=== PATIENT | female | born 1990 | race Caucasian/White ===

== ENCOUNTER 2017-07-18 01:14 | Inpatient (IN) | payer BC ==
[~2017-07-18] VITALS: Ht 175.3 cm; Wt 104.5 kg
[2017-07-18] MEDS ORDERED: BUPIVACAINE 0.25% 30 ML VIAL ONE (01:51)
[2017-07-18] MEDS ORDERED: EpHEDrine SULFATE INJ 50 MG/ML AMP ONE (01:51)
[2017-07-18] MEDS ORDERED: FENTANYL CITRATE INJ 50 MCG/1 ML 2 ML VIAL ONE (01:52)
[2017-07-18] MEDS ORDERED: FENTANYL 2MCG/ML ROPIV 1.25MG/ML 100ML BAG EPI ONE (01:52)
[2017-07-18 02:02] VITALS: Ht 175.3 cm; Wt 104.5 kg
[2017-07-18 02:05] LABS: HEMATOCRIT 32.3 % (37-47); MEAN CELL VOLUME 86.6 fL (80-100); MEAN CORPUSCULAR HEMOGLOBIN 28.4 pg (25-34); MEAN PLATELET VOLUME 9.9 fL (7.4-10.4); PLATELET COUNT 205 K/uL (130-400); RED BLOOD COUNT 3.73 M/uL (4.2-5.4); WHITE BLOOD COUNT 9.84 K/uL (4.8-10.8)
[2017-07-18] MEDS ORDERED: PRENTAB26 PO (02:05)
--- NOTE | 2017-07-18 02:17 | Progress Note ---
Progress Note Date of Service Jul 18, 2017. Progress Note Admit Note 27 F P1011 at 39.4 weeks admitted in labor. Cervix 4/70/-2/vertex. FHT Cat 1. GBS is negative. Will fluid load for epidural and plan for normal delivery.
[2017-07-18] MEDS ORDERED: NALOXONE HCL INJ 1 MG in SODIUM CHLORIDE 0.9% 1000ML 1,000 ML IV PRN ×4 (02:52)
[2017-07-18] MEDS ORDERED: LACTATED RINGER'S 1000ML 500 ML IV PRN (02:52)
[2017-07-18 02:54] LABS: MEAN CORPUSCULAR HGB CONC 32.8 g/dl (32-36)
[2017-07-18] MEDS ORDERED: EFF75 PO (02:59)
[2017-07-18] MEDS ORDERED: DiphenhydrAMINE HCL 50 MG/ML VIAL IV PRN (03:00)
[2017-07-18] MEDS ORDERED: NALBUPHINE HCL INJ 10 MG/ML AMP IV PRN (03:00)
[2017-07-18] MEDS ORDERED: NALOXONE HCL INJ 0.4 MG/1 ML VIAL/CARP IV PRN (03:00)
[2017-07-18] MEDS ORDERED: METOCLOPRAMIDE HCL INJ 20 MG in SODIUM CHLORIDE 0.9% 50ML 50 ML IV PRN (03:00)
[2017-07-18] MEDS ORDERED: FENTANYL 2MCG/ML ROPIV 1.25MG/ML 100ML BAG EPI PRN (03:00)
[2017-07-18] MEDS ORDERED: EpHEDrine SULFATE INJ 50 MG/ML AMP IV PRN (03:00)
[2017-07-18] MEDS ORDERED: PROMETHAZINE HCL INJ 25 MG in SODIUM CHLORIDE 0.9% 50ML 50 ML IV PRN (03:00)
[2017-07-18] MEDS ORDERED: ONDANSETRON INJ 2 MG/ML 2 ML VIAL IV PRN (03:00)
[2017-07-18] MEDS ORDERED: OXYTOCIN 30 UNITS/500ML NSS IV ONE (05:09)
[2017-07-18] MEDS ORDERED: LANOLIN OINT EXT PRN ×2 (05:30)
[2017-07-18] MEDS ORDERED: LACTATED RINGER'S 1000ML 1,000 ML IV SCH (05:30)
[2017-07-18] MEDS ORDERED: SUPERCREAM 0.870 % 15GM JAR EXT PRN (05:30)
[2017-07-18] MEDS ORDERED: BENZOCAINE 20% AER SPR 82.5 GM CAN EXT PRN (05:30)
[2017-07-18] MEDS ORDERED: ACETAMINOPHEN 325 MG TAB PO PRN (05:30)
[2017-07-18] MEDS ORDERED: OXYTOCIN 30 UNITS/500ML NSS IV PRN (05:30)
[2017-07-18] MEDS ORDERED: HYDROCORTISONE ACETATE 25 MG SUPP PR PRN (05:30)
--- NOTE | 2017-07-18 05:40 | Vaginal Delivery Summary ---
Vaginal Delivery Summary Delivery Note live male over intact perineum STACEY with Apgars 9/9. Delayed cord clamping follows by cord blood and spontaneous delivery of intact placenta. No tears. EBL 200 ml. Final sponge and instrument count are correct . Mom and baby stable.
--- NOTE | 2017-07-18 07:12 | Anesthesia Procedure Note ---
Anesthesia Epidural Removal Nt Date & Time Jul 18, 2017 at 07:12 Vital Signs Pain Intensity: 2.0 Notes Mental Status: alert / awake / arousable, participated in evaluation Nausea / Vomiting: adequately controlled Pain: adequately controlled Airway Patency, RR, SpO2: stable & adequate BP & HR: stable & adequate Hydration State: stable & adequate Neuraxial Anesthesia: was administered, sensory block is resolving Anesthetic Complications: no major complications apparent, pt satisfied with anesthetic care Epidural: removed without complications, with tip intact
[2017-07-18] MEDS: IBUPROFEN 600 MG TAB PO PRN ×3 (09:16→18:19)
[2017-07-18] MEDS: DOCUSATE SODIUM 100 MG CAP PO SCH ×2 (09:23→19:52)
[2017-07-18] MEDS: FERROUS SULFATE 325 MG TAB PO SCH (09:23)
[2017-07-18] MEDS: PRENATAL VITAMIN TAB PO SCH (09:24)
[2017-07-18 09:30] VITALS: BP 130/69; PULSE 115; TEMP 36.8; O2SAT 97
[2017-07-18 13:10] VITALS: BP 145/94; PULSE 82; TEMP 36.4; O2SAT 97
[2017-07-18] MEDS ORDERED: VENLAFAXINE HCL 37.5 MG TAB PO ONE (13:20)
[2017-07-18 16:20] VITALS: BP 131/87; PULSE 104; TEMP 36.4; O2SAT 94; O2SAT 97
[2017-07-18 19:50] VITALS: BP 149/89; PULSE 105; TEMP 37
[2017-07-18] MEDS: OXYCODONE/ACETAMINOPHEN 5-325 TAB PO PRN (19:54)
[2017-07-18] MEDS ORDERED: VENLAFAXINE HCL 37.5 MG TAB PO SCH (20:00)
[2017-07-18] MEDS ORDERED: NURSING VERBAL MED ORDER ONE (20:30)
[2017-07-19] VITALS: BP 125/81; PULSE 82; TEMP 37
[2017-07-19] MEDS: IBUPROFEN 600 MG TAB PO PRN ×4 (01:11→17:50)
[2017-07-19] MEDS: OXYCODONE/ACETAMINOPHEN 5-325 TAB PO PRN ×2 (01:11→13:01)
[2017-07-19 04:30] VITALS: BP 143/89; PULSE 86; TEMP 36.9
[2017-07-19 07:04] LABS: HEMATOCRIT 29.5 % (37-47)
[2017-07-19] MEDS: PRENATAL VITAMIN TAB PO SCH (07:09)
[2017-07-19] MEDS: DOCUSATE SODIUM 100 MG CAP PO SCH ×2 (07:09→20:00)
[2017-07-19] MEDS: FERROUS SULFATE 325 MG TAB PO SCH (07:09)
[2017-07-19 07:54] VITALS: BP 138/92; PULSE 69; TEMP 36.4
[2017-07-19 07:56] VITALS: O2SAT 97
[2017-07-19] MEDS ORDERED: VENLAFAXINE HCL 37.5 MG TAB PO SCH (08:00)
--- NOTE | 2017-07-19 08:36 | OB/GYN Progress Note ---
LIFE ADVISOR Progress Note Date of Service: Jul 19, 2017. Patient is seen and examined. She feels well, no complaints. Ambulating without dizziness Voiding without difficulty Tolerating regular diet with out N&V Bleeding is minimal No fever/ chills/ CP/ SOB/ N&V/ Leg pain Bottle feeding without problems Date Time Temp Pulse Resp B/P (MAP) Pulse Ox O2 Delivery O2 Flow Rate FiO2 07/19/17 07:54 36.4 69 18 138/92 (107) Room Air 07/19/17 04:30 36.9 86 18 143/89 (107) 07/19/17 00:00 Room Air 07/19/17 00:00 37.0 82 16 125/81 (96) 07/18/17 19:50 37.0 105 18 149/89 (109) 07/18/17 16:20 97 Room Air 07/18/17 16:20 36.4 104 18 131/87 (102) 94 Room Air 07/18/17 13:10 36.4 82 18 145/94 (111) 97 Room Air 07/18/17 09:30 Room Air 07/18/17 09:30 36.8 115 18 130/69 (89) 97 Room Air 07/18/17 09:30 36.8 115 18 130/69 PE: General: Alert, orientedx3, NAD Abd: soft, NT, fundus firm, below Umbilicus Perineum intact, Lochia rubra minimal Ext; NT, no edema AP: 27 yo s/p , ppd# 1 VSS Afebrile doing well Continue routine care All questions were answered D/C home in am
[2017-07-19] MEDS ORDERED: DIPHTHERIA/TETANUS/PERTUSSIS 0.5 ML SYR/VIAL IM. ONE (09:00)
[2017-07-19] MEDS ORDERED: KETOROLAC TROMETHAMINE 30 MG/ML VIAL IV PRN (14:30)
--- NOTE | 2017-07-19 14:46 | Progress Note ---
Progress Note Date of Service Jul 19, 2017. Progress Note 27 yo female s/p vaginal delivery with epidural placement. Per patient, placement of her epidural was very painful at the insertion site, but it functioned well during the labor. Afterwards, by report it was very difficult to remove and required multiple position changes before coming out with the tip intact. The block resolved as expected after the catheter was removed and the patient has full strength and sensation in both lower extremities. Now the patient is complaining of severe back pain at the insertion site. The pain is localized to the insertion site only, is sharp in nature, and feels "like something is still in there." The pain is exacerbated by movement, but is present at rest. The site is C/D/I and notable for a single needle insertion site with a small hematoma. The patient has full strength in lower extremities , sensation is grossly intact, and patient has normal flexion in the spine, although reports increased pain with flexion. The back is tender at the insertion site and slightly right of the insertion site, but there is no tenderness along the spinalis muscles. The insertion site is notable for palpable soft tissue swelling. Suspected significant inflammation and possible hematoma around the insertion site. At this time I would recommend conservative management with anti- inflammatories and ice. Orders were placed for toradol PRN in place of ibuprofen and would recommend using toradol ATC if tolerated by the patient. Ice for comfort and encourage gentle ambulation and stretching. Order also placed for lidocaine patch for possible pain relief. Please contact us immediately for worsening back pain or the development of any neurological symptoms, especially weakness in lower extremities. Anesthesia will follow up again tomorrow to assess the patient. Viviana Avalos MD, PhD Anesthesiologist
[2017-07-19 15:50] VITALS: BP 132/92; PULSE 89; TEMP 37.3
[2017-07-19] MEDS ORDERED: MTR600X PO (17:01)
[2017-07-19] MEDS ORDERED: LDDP5 TD (17:01)
--- NOTE | 2017-07-19 17:02 | Discharge Instructions ---
Discharge Instructions Date of Service Jul 19, 2017. Admission Reason for Admission: LABOR Discharge Discharge Diagnosis / Problem: Discharge Goals Goal(s): Routine recovery after delivery Activity Recommendations Activity Limitations: as noted below ACTIVITY RECOMMENDATIONS: * Gradual return to full activity over the next 2-3 weeks. * No lifting - nothing heavier than baby over the next 2-3 weeks. * Do not engage in vigorous exercise, sexual activity or sports until cleared by your physician. * Do not drive or operate any motorized equipment until cleared by your physician. * You may shower/bathe daily. BREAST CARE: If you are not breast feeding: * Wear a supportive bra 24 hours a day for one to two weeks. * Avoid stimulating your breasts and nipples as much as possible during the first few weeks after delivery. * When taking a shower, have the warm water hit your back, not breasts. * When your breasts feel full, apply ice packs. Usually three to four times a day helps ease the discomfort. * Take a mild pain medication (Tylenol/Motrin) when you are uncomfortable. If breast feeding: * Use breast milk to lubricate nipples. Lansinoh cream may be used for sore nipples. You do not need to remove cream prior to breast feeding. If using a different brand of cream, check the label for directions regarding removal of cream prior to nursing. * Wear a supportive bra. * If having problems with breasts or breast feeding, call a performance management consultant or your health care provider. EPISIOTOMY CARE: After delivery, if you have an episiotomy (stitches), the following steps will ease discomfort and aid healing. * For the first 24 hours after delivery, place ice packs next to your episiotomy to help reduce swelling. * After the first 24 hour-period, sitz baths, either portable or in the tub, are suggested. A shower with a shower arm sprayed over the episiotomy may be comforting. * Lili care should be done after each voiding and bowel movement. Squirt warm water from a plastic bottle over the perineum (region of the body between the anus and urinary opening) and pat dry. * Use Dermoplast to ease discomfort. Shake container. [place] directly over the episiotomy. * Place a Tucks on a clean sanitary pad next to your episiotomy. OVER THE COUNTER MEDICATION: * For discomfort or pain, you may use Acetaminophen (Tylenol), Ibuprofen (Advil ), or Naproxen (Aleve) following the package directions. * For constipation you may use Colace following the package directions. SPECIAL CARE INSTRUCTIONS: When you are discharged from the hospital, it is important for you to follow the instructions listed below: * During the first week at home, you should be able to care for yourself and your baby. In addition, the usual light household activities are encouraged. * Limit your activities to the way you feel. Do not try to clean the house or move furniture. Be sensible. * If you actively engage in sports and have done so up until the time of your delivery, you may resume these activities as soon as you feel able. This may take up to one month or even longer. Use good judgment. * Continue to take your vitamins for at least six weeks after the of your baby. * Your diet need not be limited unless you were on a special diet before your delivery. Breast-feeding mothers need around 2500 calories per day and at least 64-80 ounces of fluid per day (8 to 10 glasses). * You should eat foods from the four major food groups. Crash diets or fad diets are to be avoided. Eating lean meats, fresh fruits and vegetables, low-fat dairy products, high fiber foods and a regular exercise program, will help you get back to your pre- weight without putting your health at risk. * Constipation is sometimes a problem after delivery. Take a mild laxative as needed. If breast feeding, Milk of Magnesia is acceptable to use. You may use a suppository or Fleets enema if no episiotomy. * A daily shower or tub bath is suggested. Be sure to thoroughly and gently dry the perineum. * A bloody vaginal discharge will usually continue until around four weeks post . A small amount of bleeding may continue for as long as six weeks. Vaginal discharge changes from the bright red bleeding after delivery to pink then brownish and finally yellowish-pink before becoming white and disappearing. * Bleeding may increase with activity. Your first period may come in 4-8 weeks. If you are breast feeding, your period may be delayed even longer. * [place] (sex) can begin whenever both you and your partner feel comfortable and do not have any form of genital infection. It is recommended that you wait until after your return appointment and discuss with your physician. If you have questions, please talk to your health care practitioner. A condom should be used to prevent infection and . * Foreplay, gentle intercourse and lubrication is very important the first several times to prevent pain. A water-based lubricant such as K-Y jelly or Astroglide may be used. * Tampons may be used six weeks after delivery. * Douching should be avoided for 6 weeks after delivery. * If you have RH negative blood and your baby is RH positive, you will receive RHOGAM by injection prior to discharge. The nurse will give you a card to keep with you that has the date and place that you received RHOGAM after delivery. * During your care, you had a Rubella screen done to check for the presence of rubella antibodies in your blood. If your test was negative, you will receive a Rubella vaccine prior to discharge. This vaccine may cause a fever, soreness at the injection site and flu-like symptoms. If these symptoms persist, notify your health care practitioner. is not advised for three months after a Rubella vaccine. There is a higher chance of having a baby with defects if conceived within three months of getting the vaccine. * If you were discharged 24 hours from delivery or before 48 hours: Visiting nurses will come to your home 48 hours after discharge to assess you and your baby. The visiting nurse will meet with you while you are in the hospital to arrange a time and get directions to your home. * Verbalizes understanding of car seat law as reviewed with patient nursing. * Car Seat hand-out given and reviewed with patient by nursing. * Shaken baby information reviewed with patient by nursing. Call you doctor if: * Heavy bleeding (saturating several pads an hour) or passing clots the size of your fist. * A fever >101 degrees F (38.3 degrees C) on two occasions four hours apart and/or chills. * Unusual pain in the pelvic or vaginal areas. * "Baby Blues" lasting longer than two weeks. If you have any questions or concerns, call your health care practitioner at . FOLLOW-UP VISIT: * Please call the office at to schedule a 6 week examination. It is important you keep this appointment. * It is important for you to make arrangements for either yearly or twice yearly check-ups thereafter. . Current Hospital Diet Patient's current hospital diet: Regular OB Diet Discharge Diet Recommended Diet: Regular Diet Pending Studies Studies pending at discharge: no Medical Emergencies . Who to Call and When: Medical Emergencies: If at any time you feel your situation is an emergency, please call 911 immediately. . Non-Emergent Contact Non-Emergency issues call your: Primary Care Provider, Hospital Doctor, Surgeon Call Non-Emergent contact if: temperature is above 100.5, your pain is not controlled, your pain is worsening, your pain is unusual for you, wound has increased drainage, wound has increased redness, wound has increased pain, you have any medication questions . . "Provider Documentation" section prepared by Devorah Ibrahim. . VTE Core Measure Inpt VTE Proph given/why not?: Treatment not indicated
--- NOTE | 2017-07-19 17:06 | OB/GYN Progress Note ---
HANDLING TECH Progress Note Date of Service: Jul 19, 2017. Patient desires to be discharged tonight Her back pain is getting better Has not received IV Toradol ordered by Anesthesiology yet Ice pack is helping She desires lidocaine patch before d/c I talked to Dr. Avalos, anesthesiologist , who is oka her to be discharged with ibuprofen, lidocaine patch. She gave her cell phone and their office number to call with any neurologic symptoms or worsening pain Patient likes to do that Will d/c home and f/u in office All questions were answered and instructions were given when to call Rx for Lidocaine patch and Ibuprofen
[2017-07-19] MEDS ORDERED: BISACODYL 5 MG TABEC PO SCH (20:00)
[2017-07-19 20:38] VITALS: BP_DIAS 92; PULSE 89; TEMP 37.3
[2017-07-20] MEDS ORDERED: BISACODYL 10 MG SUPP PR PRN (07:00)
[2017-07-20] MEDS ORDERED: LIDODERM (LIDOCAINE) PATCH 5% TD SCH (08:00)
== END 2017-07-19 20:35 | disposition home or self-care (01) | DRG 774 ==
LOC: C.LD 01:14 → C.OPB 01:14 → C.LD 01:31 → C.OPB 01:43 → C.OBG 09:08
PROVIDERS: ADMIT Obstetrics & Gynecology; ATTEND Obstetrics & Gynecology
PROC: 10E0XZZ Delivery of Products of Conception, External Approach (ICD-10-PCS; principal; 2017-07-18)
DX: O90.2 Hematoma of obstetric wound (principal); Z3A.39 39 weeks gestation of pregnancy; Z37.0 Single live birth; Y83.8 Other surgical procedures as the cause of abnormal reaction of the patient, or of later complication, without mention of misadventure at the time of the procedure

== ENCOUNTER 2023-05-25 18:16 | Observation (INO) ==
[2023-05-25 18:49] LABS: Hematocrit (blood only) 41.4 % (37.0-47.0); Hemoglobin 13.8 g/dl (12.0-16.0); Mean Corpuscular Hemoglobin 28.4 pg (25.0-34.0); Mean Corpuscular Hgb Conc 33.3 g/dL (32.0-36.0); Mean Corpuscular Volume 85.2 fL (80.0-100.0); Mean Platelet Volume 9.4 fL (9.4-12.4); Platelet Count 364 K/uL (130-400); RDW Coefficient of Variation 13.2 % (11.5-14.5); RDW Standard Deviation 40.3 fL (36.4-46.3); Red Blood Count 4.86 M/uL (4.20-5.40); White Blood Count 11.37 K/ul (4.8-10.8)
[2023-05-25 19:03] LABS: Albumin Globulin Ratio 1.3 (0.9-2); Albumin Level 4.4 gm/dl (3.4-5.0); BUN Creatinine Ratio 22.7 (10-20); Bilirubin,Total 0.3 mg/dl (0.2-1.0); Calcium 9.2 mg/dl (8.6-10.3); Creatinine Clr Calc Pharmacy 116.9 ml/min; Est GFR (African American) 99.4 ml/min; Est GFR (Non-African American) 85.7 ml/min; Globulin 3.4 gm/dl (2.5-4.0); Potassium 3.6 mmol/L (3.5-5.1); Total Protein 7.8 gm/dl (6.0-8.3)
[2023-05-25 19:08] LABS: Troponin I High Sensitivity 2.3 pg/ml (0-14)
[2023-05-25 19:10] LABS: Basophils # (auto) 0.02 K/uL (0-0.2); Basophils % (auto) 0.2 %; Immature Granulocytes # (auto) 0.05 K/uL (0.01-0.20); Immature Granulocytes % (auto) 0.4 %; Lymphocytes # (auto) 0.67 K/uL (1.2-3.4); Lymphocytes % (auto) 5.9 %; Monocytes # (auto) 0.07 K/uL (0.11-0.59); Monocytes % (auto) 0.6 %; Neutrophils # (auto) 10.56 K/uL (1.40-6.50); Neutrophils % (auto) 92.9 %; RBC Morphology Unremarkable
--- NOTE | 2023-05-25 19:21 | XRay Report ---
XR chest 1V not portable HISTORY: 33 years-old Female Chest pain, nonspecific COMPARISON: None TECHNIQUE: PA view of the chest FINDINGS: Cardiac mediastinal and hilar silhouettes are within normal limits. No pneumothorax, pleural effusion or pulmonary edema. Mild linear subsegmental left mid lung atelectasis. Bones appear grossly intact. IMPRESSION: No acute process. ACT 112: Negative or not required by law. The above report was generated using voice recognition software. It may contain grammatical, syntax o r spelling errors. Electronically signed by: Maykel Orozco M.D. 05/25/2023 7:19 PM
[2023-05-25 19:23] LABS: Partial Thromboplastin Time 26.8 Seconds (21.0-31.0); Prothrombin Time 10.5 Seconds (9.0-12.0)
[2023-05-25] MEDS ORDERED: KETOROLAC TROMETHAMINE 15 MG/ML VIAL IV STA (20:00)
[2023-05-25] MEDS ORDERED: ONDANSETRON INJ 2 MG/ML 2 ML VIAL IV STA (20:00)
[2023-05-25] MEDS ORDERED: ALBUT/IPRATROP 3MG/0.5MG NEB 3 ML VIAL NEB STA (20:00)
[2023-05-25] MEDS ORDERED: MoRPHine SULFATE 4 MG/ML 1 ML CARP\\VIAL IV STA ×2 (20:00→21:43)
[2023-05-25] MEDS ORDERED: SODIUM CHLORIDE 0.9% 1000ML 1,000 ML IV ONE (20:07)
--- NOTE | 2023-05-25 20:07 | Emergency Department Note ---
Impression & Plan SOB (shortness of breath), Pleuritic chest pain, Tachycardia, Pneumonia, Leukocytosis ED Provider Note NAME: TATA BECERRA AGE: 33 SEX: F : 1990 ARRIVES VIA: Walk-In INFORMANT: [Patient] ED PROVIDER(S): [Bashir Hubbard MD] CHIEF COMPLAINT: Generalized pain HISTORY OF PRESENT ILLNESS: The patient is a 33-year-old female who has been coughing for over 2 weeks. The patient states that things seemed to get worse over the last few days so she went to urgent care 2 days ago. They diagnosed her with bronchitis and prescribed Flonase, prednisone, albuterol and Tessalon Perles. The patient feels no better in fact, today, she feels more short of breath, nauseated and has diffuse upper back pain. Back pain seems worse with deeper breathing. There has been no fever, no urinary complaints. No vomiting or diarrhea. She has no diagnosed lung disease. No known sick contacts. PMHx/PSHx: See Below SOCIAL HISTORY: See Below. PHYSICAL EXAM: GENERAL: Patient is in no acute distress. HEENT: No acute trauma, normocephalic atraumatic, mucous membranes moist, no nasal congestion. NECK: No stridor, no adenopathy, no meningismus, trachea is midline. LUNGS: A few scattered wheezes heard, no rhonchi, no respiratory distress. HEART: Mildly tachycardic, regular rhythm, no murmurs. ABDOMEN: Soft, nontender, bowel sounds positive, no peritonitis. EXTREMITIES: No cyanosis or edema, full range of motion of all the joints without pain or difficulty, no signs for acute trauma. NEUROLOGIC: Oriented x 3, no acute motor or sensory deficits, no focal weakness. SKIN: No rash, no jaundice, no diaphoresis. DIFFERENTIAL DIAGNOSIS: Bronchitis or pneumonia, PE, viral illness, anemia, electrolyte imbalance, dysrhythmia or cardiac ischemia, among others. EMERGENCY DEPARTMENT COURSE/PROCEDURES: Prior/Outside records reviewed: None. ECG per my interpretation: Indication was back pain and shortness of breath. The ECG shows a sinus tachycardia with a rate of 105. There is some diffuse nonspecific ST change. There is some poor R wave progression across the anterior lateral leads. There is no ST elevation. No PVCs. The QTc is 438 Continuous Cardiac Monitoring per my interpretation: An order was placed for continuous cardiac monitoring. The monitor shows a rate of 86 with normal sinus rhythm. MEDICAL DECISION MAKING: There is a mild leukocytosis, this would be consistent with infection. There is a normal hemoglobin and platelet count. No coagulopathy. No renal failure. Glucose slightly elevated. Lactic acid level is not elevated making severe sepsis less likely. There was no concerning liver enzyme elevation. ECG shows a sinus tachycardia, no ST elevation. Cardiac enzyme testing x1 is not consistent with acute cardiac injury. Respiratory bio fire was completely negative. Chest film per my review showed some potential infiltrate or atelectasis to the mid left lung. There was no pneumothorax or heart failure. Chest CT did not show PE, a infiltrate was seen on the left. The aorta was unremarkable. On exam, the patient was tachycardic and hypertensive. She had pleuritic discomfort and seemed quite uncomfortable. She was not hypoxic. Patient received IV morphine for pain, IV Toradol for pain. She was given IV Zofran. Additional doses of IV morphine were required to control her discomfort. She was given IV saline for hydration. She received a DuoNeb. She was given IV ceftriaxone and IV Zithromax. Patient is still in significant discomfort. She is still tachycardic. I do think a hospital stay for symptom control is needed. She would benefit from IV antibiotic therapy. I spoke with the patient and case management, the on-call hospitalist was consulted. DISPOSITION: Patient's presentation and findings warrant a hospital stay. Past Med/Surg History Medical History (Updated 05/25/23 @ 23:03 by Bashir Hubbard MD) Anxiety Depression Surgical History S/P wisdom tooth extraction Family History Father Hypertension Mother Lung cancer Sister Hypertension Brother Hypertension Grandmother (Maternal) Diabetes Other No significant family history Social History Smoking Status: Former smoker Hx Alcohol Use: Yes Alcohol type: beer Preferred Language: Samoan Current Living Situation: Family current occupational status: employed Feels Safe at Home: Yes Allergies Allergies Allergy/AdvReac Type Severity Reaction Status Date / Time No Known Allergies Allergy Unverified 06/18/20 10:28 Home Meds Home Medications Medication Instructions Recorded Confirmed multivitamin (Multiple Vitamins 1 tab PO DAILY 01/05/20 05/25/23 tablet) albuterol sulfate 90 mcg/actuation 2 puff inhalation Q4 PRN Shortness 05/25/23 05/25/23 aerosol inhaler Of Breath Or Wheezing benzonatate 100 mg capsule 100 mg PO TID PRN Cough 05/25/23 05/25/23 fluticasone propionate 50 2 spray intranasal QAM 05/25/23 05/25/23 mcg/actuation nasal spray,suspension prednisone 10 mg tablet See Rx Instructions .Route .COMPLEX 05/25/23 05/25/23 venlafaxine 150 mg 150 mg PO DAILY 05/25/23 05/25/23 capsule,extended release 24 hr Results & Data (ED) Vital Signs Vital Signs - 24 hr 05/25/23 18:20 05/25/23 19:17 05/25/23 19:17 Temperature 36.7 C Temperature Source Temporal Artery Scan Pulse Rate 115 H 86 Pulse Rate [Apical] Pulse Rate from SpO2 Sensor Respiratory Rate 20 13 Respiratory Effort / Characteristics Non-Labored Respiratory Depth Normal Blood Pressure 159/100 H Blood Pressure [Left Arm] Blood Pressure Mean 119 Blood Pressure Mean [Left Arm] Blood Pressure Position Sitting Pulse Oximetry 98 98 98 Oxygen Delivery Method Room Air Room Air Room Air Sepsis Recent Fever Within 48 Hours No Sepsis New/Unexplained Change in Mental Status No Sepsis Action Taken by Nursing No Action Required 05/25/23 19:17 05/25/23 19:35 05/25/23 19:40 Temperature Temperature Source Pulse Rate 96 H 91 H Pulse Rate [Apical] Pulse Rate from SpO2 Sensor 94 H 90 Respiratory Rate 21 12 Respiratory Effort / Characteristics Respiratory Depth Blood Pressure Blood Pressure [Left Arm] 161/111 H Blood Pressure Mean Blood Pressure Mean [Left Arm] 127 Blood Pressure Position Pulse Oximetry 97 98 Oxygen Delivery Method Sepsis Recent Fever Within 48 Hours Sepsis New/Unexplained Change in Mental Status Sepsis Action Taken by Nursing 05/25/23 19:50 05/25/23 20:00 05/25/23 20:00 Temperature Temperature Source Pulse Rate 88 84 Pulse Rate [Apical] Pulse Rate from SpO2 Sensor 88 85 Respiratory Rate 19 16 Respiratory Effort / Characteristics Respiratory Depth Blood Pressure 167/123 H Blood Pressure [Left Arm] Blood Pressure Mean 146 Blood Pressure Mean [Left Arm] Blood Pressure Position Pulse Oximetry 97 97 Oxygen Delivery Method Sepsis Recent Fever Within 48 Hours Sepsis New/Unexplained Change in Mental Status Sepsis Action Taken by Nursing 05/25/23 20:10 05/25/23 20:20 05/25/23 20:50 Temperature Temperature Source Pulse Rate 84 83 Pulse Rate [Apical] Pulse Rate from SpO2 Sensor 85 Respiratory Rate 15 17 17 Respiratory Effort / Characteristics Respiratory Depth Blood Pressure Blood Pressure [Left Arm] Blood Pressure Mean Blood Pressure Mean [Left Arm] Blood Pressure Position Pulse Oximetry 97 Oxygen Delivery Method Sepsis Recent Fever Within 48 Hours Sepsis New/Unexplained Change in Mental Status Sepsis Action Taken by Nursing 05/25/23 21:00 05/25/23 21:10 05/25/23 21:20 Temperature Temperature Source Pulse Rate 85 Pulse Rate [Apical] Pulse Rate from SpO2 Sensor Respiratory Rate 17 17 17 Respiratory Effort / Characteristics Respiratory Depth Blood Pressure Blood Pressure [Left Arm] Blood Pressure Mean Blood Pressure Mean [Left Arm] Blood Pressure Position Pulse Oximetry Oxygen Delivery Method Sepsis Recent Fever Within 48 Hours Sepsis New/Unexplained Change in Mental Status Sepsis Action Taken by Nursing 05/25/23 21:30 05/25/23 21:47 05/25/23 21:47 Temperature Temperature Source Pulse Rate 91 H Pulse Rate [Apical] 89 Pulse Rate from SpO2 Sensor Respiratory Rate 18 15 Respiratory Effort / Characteristics Respiratory Depth Blood Pressure 150/96 H Blood Pressure [Left Arm] 150/96 H Blood Pressure Mean 108 Blood Pressure Mean [Left Arm] 114 Blood Pressure Position Pulse Oximetry 97 Oxygen Delivery Method Room Air Sepsis Recent Fever Within 48 Hours Sepsis New/Unexplained Change in Mental Status Sepsis Action Taken by Nursing 05/25/23 21:47 05/25/23 21:50 05/25/23 22:00 Temperature Temperature Source Pulse Rate 94 H 89 Pulse Rate [Apical] Pulse Rate from SpO2 Sensor 91 H Respiratory Rate 18 14 Respiratory Effort / Characteristics Respiratory Depth Blood Pressure 143/102 H Blood Pressure [Left Arm] Blood Pressure Mean 114 Blood Pressure Mean [Left Arm] Blood Pressure Position Pulse Oximetry 96 Oxygen Delivery Method Sepsis Recent Fever Within 48 Hours Sepsis New/Unexplained Change in Mental Status Sepsis Action Taken by Nursing 05/25/23 22:00 05/25/23 22:10 05/25/23 22:20 Temperature Temperature Source Pulse Rate 91 H 86 90 Pulse Rate [Apical] Pulse Rate from SpO2 Sensor 92 H 85 89 Respiratory Rate 20 20 15 Respiratory Effort / Characteristics Respiratory Depth Blood Pressure Blood Pressure [Left Arm] Blood Pressure Mean Blood Pressure Mean [Left Arm] Blood Pressure Position Pulse Oximetry 97 97 99 Oxygen Delivery Method Sepsis Recent Fever Within 48 Hours Sepsis New/Unexplained Change in Mental Status Sepsis Action Taken by Nursing 05/25/23 22:30 05/25/23 22:30 05/25/23 22:40 Temperature Temperature Source Pulse Rate 93 H 87 Pulse Rate [Apical] Pulse Rate from SpO2 Sensor 94 H 87 Respiratory Rate 13 18 Respiratory Effort / Characteristics Respiratory Depth Blood Pressure 145/109 H Blood Pressure [Left Arm] Blood Pressure Mean 128 Blood Pressure Mean [Left Arm] Blood Pressure Position Pulse Oximetry 98 100 Oxygen Delivery Method Sepsis Recent Fever Within 48 Hours Sepsis New/Unexplained Change in Mental Status Sepsis Action Taken by Nursing 05/25/23 22:50 Temperature Temperature Source Pulse Rate 88 Pulse Rate [Apical] Pulse Rate from SpO2 Sensor 91 H Respiratory Rate 14 Respiratory Effort / Characteristics Respiratory Depth Blood Pressure Blood Pressure [Left Arm] Blood Pressure Mean Blood Pressure Mean [Left Arm] Blood Pressure Position Pulse Oximetry 100 Oxygen Delivery Method Sepsis Recent Fever Within 48 Hours Sepsis New/Unexplained Change in Mental Status Sepsis Action Taken by Detention Medications Current Medication List: was personally reviewed by me Laboratory Data Attestation: I reviewed the patient's lab results. 05/25/23 18:31 05/25/23 18:31 Lab Results 05/25/23 05/25/23 05/25/23 Range/Units 18:31 18:31 18:31 WBC 11.37 H (4.8-10.8) K/ul RBC 4.86 (4.20-5.40) M/uL Hgb 13.8 (12.0-16.0) g/dl Hct 41.4 (37.0-47.0) % MCV 85.2 (80.0-100.0) fL MCH 28.4 (25.0-34.0) pg MCHC 33.3 (32.0-36.0) g/dL RDW Std Deviation 40.3 (36.4-46.3) fL RDW Coeff of Katina 13.2 (11.5-14.5) % Plt Count 364 (130-400) K/uL MPV 9.4 (9.4-12.4) fL Immature Gran % (Auto) 0.4 % Neut % (Auto) 92.9 % Lymph % (Auto) 5.9 % [place] % (Auto) 0.6 % Eos % (Auto) 0.0 % Baso % (Auto) 0.2 % Neut # (Auto) 10.56 H (1.40-6.50) K/uL Lymph # (Auto) 0.67 L (1.2-3.4) K/uL [place] # (Auto) 0.07 L (0.11-0.59) K/uL Eos # (Auto) 0.00 (0-0.50) K/uL Baso # (Auto) 0.02 (0-0.2) K/uL Immature Gran # (Auto) 0.05 (0.01-0.20) K/uL RBC Morphology Unremarkable PT 10.5 (9.0-12.0) Seconds INR 1.0 (0.9-1.1) APTT 26.8 (21.0-31.0) Seconds PTT Ratio 1.0 Sodium 135 L (136-145) mmol/L Potassium 3.6 (3.5-5.1) mmol/L Chloride 104 (98-107) mmol/L Carbon Dioxide 23 (21-32) mmol/L Anion Gap 8 (3-11) BUN 20 (6-23) mg/dl Creatinine 0.88 (0.6-1.2) mg/dl Est Cr Clr Drug Dosing 116.9 ml/min Est GFR ( Amer) 99.4 ml/min Est GFR (Non-Af Amer) 85.7 ml/min BUN/Creatinine Ratio 22.7 H (10-20) Glucose 211 H (70-99(Fasting)) mg/dl Lactate (0.4-2.0) mmol/L Calcium 9.2 (8.6-10.3) mg/dl Total Bilirubin 0.3 (0.2-1.0) mg/dl AST 20 (13-39) U/L ALT 32 (7-52) U/L Alkaline Phosphatase 60 (34-104) U/L Troponin I High Sens 2.3 (0-14) pg/ml Total Protein 7.8 (6.0-8.3) gm/dl Albumin 4.4 (3.4-5.0) gm/dl Globulin 3.4 (2.5-4.0) gm/dl Albumin/Globulin Ratio 1.3 (0.9-2) Adenovirus (PCR) (NotDetected) B. pertussis DNA (PCR) (NotDetected) B.parapertussis DNA PCR (NotDetected) C. pneumoniae DNA (PCR) (NotDetected) Coronavirus OC43 (PCR) (NotDetected) Coronavirus HKU1 (PCR) (NotDetected) Coronavirus 229E (PCR) (NotDetected) SARS-CoV-2 (PCR) (NotDetected) Coronavirus NL63 (PCR) (NotDetected) Human Metapneumovir PCR (NotDetected) Influenza Type A (PCR) (NotDetected) Influenza Type B (PCR) (NotDetected) M. pneumoniae (PCR) (NotDetected) Parainfluenza 1 (PCR) (NotDetected) Parainfluenza 2 (PCR) (NotDetected) Parainfluenza 3 (PCR) (NotDetected) Parainfluenza 4 (PCR) (NotDetected) RSV (PCR) (NotDetected) Entero/Rhino (PCR) (NotDetected) 05/25/23 05/25/23 Range/Units 20:11 20:19 WBC (4.8-10.8) K/ul RBC (4.20-5.40) M/uL Hgb (12.0-16.0) g/dl Hct (37.0-47.0) % MCV (80.0-100.0) fL MCH (25.0-34.0) pg MCHC (32.0-36.0) g/dL RDW Std Deviation (36.4-46.3) fL RDW Coeff of Katina (11.5-14.5) % Plt Count (130-400) K/uL MPV (9.4-12.4) fL Immature Gran % (Auto) % Neut % (Auto) % Lymph % (Auto) % [place] % (Auto) % Eos % (Auto) % Baso % (Auto) % Neut # (Auto) (1.40-6.50) K/uL Lymph # (Auto) (1.2-3.4) K/uL [place] # (Auto) (0.11-0.59) K/uL Eos # (Auto) (0-0.50) K/uL Baso # (Auto) (0-0.2) K/uL Immature Gran # (Auto) (0.01-0.20) K/uL RBC Morphology PT (9.0-12.0) Seconds INR (0.9-1.1) APTT (21.0-31.0) Seconds PTT Ratio Sodium (136-145) mmol/L Potassium (3.5-5.1) mmol/L Chloride (98-107) mmol/L Carbon Dioxide (21-32) mmol/L Anion Gap (3-11) BUN (6-23) mg/dl Creatinine (0.6-1.2) mg/dl Est Cr Clr Drug Dosing ml/min Est GFR ( Amer) ml/min Est GFR (Non-Af Amer) ml/min BUN/Creatinine Ratio (10-20) Glucose (70-99(Fasting)) mg/dl Lactate 2.0 (0.4-2.0) mmol/L Calcium (8.6-10.3) mg/dl Total Bilirubin (0.2-1.0) mg/dl AST (13-39) U/L ALT (7-52) U/L Alkaline Phosphatase (34-104) U/L Troponin I High Sens (0-14) pg/ml Total Protein (6.0-8.3) gm/dl Albumin (3.4-5.0) gm/dl Globulin (2.5-4.0) gm/dl Albumin/Globulin Ratio (0.9-2) Adenovirus (PCR) Not Detected (NotDetected) B. pertussis DNA (PCR) Not Detected (NotDetected) B.parapertussis DNA PCR Not Detected (NotDetected) C. pneumoniae DNA (PCR) Not Detected (NotDetected) Coronavirus OC43 (PCR) Not Detected (NotDetected) Coronavirus HKU1 (PCR) Not Detected (NotDetected) Coronavirus 229E (PCR) Not Detected (NotDetected) SARS-CoV-2 (PCR) Not Detected (NotDetected) Coronavirus NL63 (PCR) Not Detected (NotDetected) Human Metapneumovir PCR Not Detected (NotDetected) Influenza Type A (PCR) Not Detected (NotDetected) Influenza Type B (PCR) Not Detected (NotDetected) M. pneumoniae (PCR) Not Detected (NotDetected) Parainfluenza 1 (PCR) Not Detected (NotDetected) Parainfluenza 2 (PCR) Not Detected (NotDetected) Parainfluenza 3 (PCR) Not Detected (NotDetected) Parainfluenza 4 (PCR) Not Detected (NotDetected) RSV (PCR) Not Detected (NotDetected) Entero/Rhino (PCR) Not Detected (NotDetected) Administered Medications Discontinued Medications Albuterol (Albut/Ipratrop 3mg/0.5mg Neb 3 Ml Vial) 3 ml NEB NOW STA; Protocol Stop: 05/25/23 20:01 Last Admin: 05/25/23 20:07 Dose: 3 ml Documented By: ML Sodium Chloride (Nss 1000ml) 1,000 mls @ 999 mls/hr IV .Q1H1M ONE Stop: 05/25/23 21:07 Last Infusion: 05/25/23 21:15 Dose: 0 mls/hr Documented By: Admin: 05/25/23 20:14 Dose: 999 mls/hr Documented By: ML Ioversol (Ioversol 350 Mg 125ml Prefilled Syringe) 114 ml IV ONCE ONE Stop: 05/25/23 20:37 Last Admin: 05/25/23 20:36 Dose: 114 ml Documented By: SUGAR Ketorolac Tromethamine (Ketorolac Tromethamine 15 Mg/Ml Vial) 15 mg IV NOW STA Stop: 05/25/23 20:01 Last Admin: 05/25/23 20:07 Dose: 15 mg Documented By: ML Morphine Sulfate (Morphine Sulfate 4 Mg/Ml 1 Ml Carp\Vial) 4 mg IV NOW STA Stop: 05/25/23 20:01 Last Admin: 05/25/23 20:06 Dose: 4 mg Documented By: ML Morphine Sulfate (Morphine Sulfate 4 Mg/Ml 1 Ml Carp\Vial) 4 mg IV NOW STA Stop: 05/25/23 21:44 Last Admin: 05/25/23 21:47 Dose: 4 mg Documented By: ML Ondansetron HCl (Ondansetron Inj 2 Mg/Ml 2 Ml Vial) 4 mg IV NOW STA Stop: 05/25/23 20:01 Last Admin: 05/25/23 20:06 Dose: 4 mg Documented By: ML Imaging Data Radiologist's Impression: Chest X-Ray 05/25/23 18:24 XR chest 1V not portable HISTORY: 33 years-old Female Chest pain, nonspecific COMPARISON: None TECHNIQUE: PA view of the chest FINDINGS: Cardiac mediastinal and hilar silhouettes are within normal limits. No pne umothorax, pleural effusion or pulmonary edema. Mild linear subsegmental left mid lung atelectasis. Bones appear grossly intact. IMPRESSION: No acute process. ACT 112: Negative or not required by law. The above report was generated using voice recognition software. It may contain grammatical, syntax or spelling errors. Electronically signed by: Maykel Orozco M.D. 05/25/2023 7:19 PM Chest CTA 05/25/23 20:00 Exam(s): CTA CHEST IV Amt: 114ml EXAM: CT Angiography Chest With Intravenous Contrast CLINICAL HISTORY: Reason for exam: PE. TECHNIQUE: Axial computed tomographic angiography images of the chest with intravenous contrast. CTDI is 37.9 mGy and DLP is 853.01 mGy-cm. Automated exposure control was utilized for the study. A dose lowering technique was utilized adhering to the principles of ALARA. MIP reconstructed images were created and reviewed. COMPARISON: No relevant prior studies available. FINDINGS: Pulmonary arteries: Unremarkable. No pulmonary embolism. Aorta: No acute findings. No thoracic aortic aneurysm. Lungs: Linear band of consolidation and atelectasis seen anteriorly in the left lower lobe. No mass. Pleural space: Unremarkable. No significant effusion. No pneumothorax. Heart: Unremarkable. No cardiomegaly. No significant pericardial effusion. No evidence of RV dysfunction. Bones/joints: No acute fracture. No dislocation. Soft tissues: Unremarkable. Lymph nodes: Unremarkable. No enlarged lymph nodes. IMPRESSION: 1. No acute pulmonary embolism 2. Linear band of consolidation and atelectasis in the left lower lobe Electronically signed by: Charles Germain MD 05/25/23 22:42 PM Discharge Plan Visit Data Chief Complaint: Pain (Generalized) Stated Complaint: CHEST PAIN, BACK PAIN, ABDOMINAL PAIN, WEAKNESS ED Provider: Bashir Hubbard Discharge Problem: SOB (shortness of breath), Pleuritic chest pain, Tachycardia, Pneumonia, Leukocytosis Patient Disposition: Admitted As Inpatient Condition: Fair Forms Stand Alone Forms: [facility] Prescriptions Prescriptions: No Action multivitamin [Multiple Vitamins] Tablet 1 tab PO DAILY venlafaxine 150 mg capsule,extended release 24hr 150 mg PO DAILY benzonatate 100 mg capsule 100 mg PO TID PRN (Reason: Cough) albuterol sulfate 90 mcg/actuation HFA aerosol inhaler 2 puff INHALATION Q4 PRN (Reason: Shortness Of Breath Or Wheezing) prednisone 10 mg tablet See Rx Instructions .ROUTE .COMPLEX Rx Instructions: take 5 tablets daily for 2 days, 4 tabs for 2 days,3 tabs for 2 days,etc fluticasone propionate 50 mcg/actuation spray,suspension 2 spray INTRANASAL QAM Referrals Referrals: PCP,NO [Primary Care Provider] -
[2023-05-25] MEDS ORDERED: IOVERSOL 350 MG 125mL Prefilled Syringe IV ONE (20:36)
[2023-05-25 21:30] LABS: Adenovirus PCR Not Detected (NotDetected); Bordetella parapertussis PCR Not Detected (NotDetected); Bordetella pertussis PCR Not Detected (NotDetected); Chlamydia pneumoniae PCR Not Detected (NotDetected); Coronavirus 229E PCR Not Detected (NotDetected); Coronavirus CoV-2 (COVID19)PCR Not Detected (NotDetected); Coronavirus HKU1 PCR Not Detected (NotDetected); Coronavirus NL63 PCR Not Detected (NotDetected); Coronavirus OC43PCR Not Detected (NotDetected); Human Metapneumovirus PCR Not Detected (NotDetected); Influenza A PCR Not Detected (NotDetected); Influenza B PCR Not Detected (NotDetected); Mycoplasma pneumoniae PCR Not Detected (NotDetected); Parainfluenza Virus 1 PCR Not Detected (NotDetected); Parainfluenza Virus 2 PCR Not Detected (NotDetected); Parainfluenza Virus 3 PCR Not Detected (NotDetected); Parainfluenza Virus 4 PCR Not Detected (NotDetected); Respiratory Syncytial VirusPCR Not Detected (NotDetected); Rhinovirus/Enterovirus PCR Not Detected (NotDetected)
--- NOTE | 2023-05-25 22:43 | CT Scan Report ---
Exam(s): CTA CHEST IV Amt: 114ml EXAM: CT Angiography Chest With Intravenous Contrast CLINICAL HISTORY: Reason for exam: PE. TECHNIQUE: Axial computed tomographic angiography images of the chest with intravenous contrast. CTDI is 37.9 mGy and DLP is 853.01 mGy-cm. Automated exposure control was utilized for the study. A dose lowering technique was utilized adhering to the principles of ALARA. MIP reconstructed images were created and reviewed. COMPARISON: No relevant prior studies available. FINDINGS: Pulmonary arteries: Unremarkable. No pulmonary embolism. Aorta: No acute findings. No thoracic aortic aneurysm. Lungs: Linear band of consolidation and atelectasis seen anteriorly in the left lower lobe. No mass. Pleural space: Unremarkable. No significant effusion. No pneumothorax. Heart: Unremarkable. No cardiomegaly. No significant pericardial effusion. No evidence of RV dysfunction. Bones/joints: No acute fracture. No dislocation. Soft tissues: Unremarkable. Lymph nodes: Unremarkable. No enlarged lymph nodes. IMPRESSION: 1. No acute pulmonary embolism 2. Linear band of consolidation and atelectasis in the left lower lobe Electronically signed by: Charles Germain MD 05/25/23 22:42 PM
[2023-05-25] MEDS ORDERED: MoRPHine SULFATE 10 MG/ML CARP/VIAL IV STA (22:53)
[2023-05-25] MEDS ORDERED: MoRPHine SULFATE 4 MG/ML 1 ML CARP\\VIAL IV PRN (22:53)
[2023-05-25] MEDS ORDERED: AZITHROMYCIN 500 MG in DEXTROSE 5% 250 ML IV ONE (22:54)
[2023-05-25] MEDS ORDERED: cefTRIAXone SODIUM 2,000 MG/70 ML BAG IV STA (22:54)
[2023-05-26] MEDS ORDERED: methylPREDNISolone 125 MG/2 ML VIAL IV STA (00:12)
--- NOTE | 2023-05-26 00:14 | History & Physical Report ---
Date of Service May 26, 2023 Assessment & Plan (1) Pneumonia involving left lung: (2) Pleuritic chest pain: (3) Migraine: (4) Anxiety and depression: (5) Hypertension: (6) Paresthesia: (7) Failure of outpatient treatment: Plan Linear pneumonia involving left lung/failure of outpatient treatment- Patient was given ceftriaxone and azithromycin IV in the ED Continue azithromycin [address] on cefepime 2 g IV every 12 hours, as patient works in a longterm Duonebs every 4 hours while awake and every 2 hours when necessary. Methylprednisolone 125 mg IV now, then 40 mg IV every 8 hours Guaifenesin extended release 1200mg p.o. twice daily Viral PCR test negative Nasal cannula oxygen, titrate to keep pulse ox around 95% Anxiety and depression- Continue venlafaxine Migraine headaches- Monitor for any breakthroughs, no current issues History of Present Illness Chief Complaint: The patient presents to the emergency department with complaint of 2 weeks of cough that has been progressively worsening. She went to urgent care 2 days ago, was prescribed Flonase, prednisone, albuterol and Tessalon Perles. Her symptoms have continued to worsen, and she presented to the ED for assessment. Primary Care Provider: NO PCP The patient is a 33-year-old female with a past medical history including basilar migraine, anxiety and depression, hypertension and paresthesias. She presents to the ED with symptoms as noted above. CT scan in the emergency department showed a left-sided linear pneumonia, and patient was referred for evaluation for admission due to this finding and significant pleuritic chest pain Allergies Allergy/AdvReac Type Severity Reaction Status Date / Time No Known Allergies Allergy Unverified 03/24/20 10:28 Home Medications Medication Instructions Recorded Confirmed Type multivitamin (Multiple Vitamins 1 tab PO DAILY 01/05/20 05/25/23 History tablet) albuterol sulfate 90 mcg/actuation 2 puff inhalation Q4 PRN Shortness 05/25/23 05/25/23 History aerosol inhaler Of Breath Or Wheezing benzonatate 100 mg capsule 100 mg PO TID PRN Cough 05/25/23 05/25/23 History fluticasone propionate 50 2 spray intranasal QAM 05/25/23 05/25/23 History mcg/actuation nasal spray,suspension prednisone 10 mg tablet See Rx Instructions .Route .COMPLEX 05/25/23 05/25/23 History venlafaxine 150 mg 150 mg PO DAILY 05/25/23 05/25/23 History capsule,extended release 24 hr Past Med/Surg History Medical History (Updated 05/26/23 @ 00:19 by Loco Gilmore MD) Anxiety Depression Surgical History S/P wisdom tooth extraction Family History Father Hypertension Mother Lung cancer Sister Hypertension Brother Hypertension Grandmother (Maternal) Diabetes Other No significant family history Social History Smoking Status: Former smoker Hx Alcohol Use: Yes Alcohol type: beer Preferred Language: Czech Current Living Situation: Family current occupational status: employed Feels Safe at Home: Yes Review of Systems Review of Systems: The patient denies palpitations, lower extremity swelling, sore throat, fevers, chills, sweats, nausea, vomiting, diarrhea , constipation, abdominal pain, pelvic pain, blood in urine or stool, dysuria, urinary frequency or urgency, lightheadedness, dizziness, memory loss, loss of consciousness, rash, abnormal bruising or bleeding, imbalance, focal or generalized weakness, numbness or tingling in arms or legs, generalized arthralgias or myalgias, neck pain, or night sweats. The review of systems is otherwise negative other than for that already noted above, and at least 10 systems have been reviewed. Physical Exam Physical Exam: The patient is awake, alert and oriented 3, well developed and well nourished, normocephalic and atraumatic, lying in bed and in no acute distress. HEENT--PERRL, EOMI, mucous membranes and oropharynx normal.. Neck--supple. No JVD. No bruits. Thyroid normal, trachea midline, no adenopathy. Heart--normal S1 and S2. No murmurs, rubs or gallops. Lungs--few coarse breath sounds on left. No respiratory distress, no accessory muscle use. Abdomen--normal bowel sounds and soft. Nontender. Nondistended, no hernias or masses, no organomegaly. Extremities--no cyanosis or clubbing. No edema. Dermatologic--normal skin turgor, normal color, no abnormal lymph nodes, no rash. Neurologic--cranial nerves II through XII grossly intact. Rheumatologic--normal range of motion. Psychiatric--normal affect. Results & Data Results & Data Vital Signs (Past 12 Hours) Vital Signs Temp Pulse Pulse Resp BP BP Pulse Ox 05/25/23 23:00 89 17 153/107 H 96 05/25/23 22:50 88 14 100 05/25/23 22:40 87 18 100 05/25/23 22:30 93 H 13 98 05/25/23 22:30 145/109 H 05/25/23 22:20 90 15 99 05/25/23 22:10 86 20 97 05/25/23 22:00 91 H 20 97 05/25/23 22:00 143/102 H 05/25/23 21:50 89 14 96 05/25/23 21:47 94 H 18 05/25/23 21:47 150/96 H 05/25/23 21:47 89 15 150/96 H 97 05/25/23 21:30 91 H 18 05/25/23 21:20 85 17 05/25/23 21:10 17 05/25/23 21:00 17 05/25/23 20:50 17 05/25/23 20:20 83 17 97 05/25/23 20:10 84 15 05/25/23 20:00 84 16 97 05/25/23 20:00 167/123 H 05/25/23 19:50 88 19 97 05/25/23 19:40 91 H 12 98 05/25/23 19:35 96 H 21 97 05/25/23 19:17 161/111 H 05/25/23 19:17 86 13 98 05/25/23 19:17 98 05/25/23 18:20 36.7 C 115 H 20 159/100 H 98 O2 Del Method 05/25/23 23:00 Room Air 05/25/23 22:50 05/25/23 22:40 05/25/23 22:30 05/25/23 22:30 05/25/23 22:20 05/25/23 22:10 05/25/23 22:00 05/25/23 22:00 05/25/23 21:50 05/25/23 21:47 05/25/23 21:47 05/25/23 21:47 Room Air 05/25/23 21:30 05/25/23 21:20 05/25/23 21:10 05/25/23 21:00 05/25/23 20:50 05/25/23 20:20 05/25/23 20:10 05/25/23 20:00 05/25/23 20:00 05/25/23 19:50 05/25/23 19:40 05/25/23 19:35 05/25/23 19:17 05/25/23 19:17 Room Air 05/25/23 19:17 Room Air 05/25/23 18:20 Room Air Laboratory Results Laboratory Results WBC 11.37 K/ul (4.8-10.8) H 05/25/23 18:31 RBC 4.86 M/uL (4.20-5.40) 05/25/23 18:31 Hgb 13.8 g/dl (12.0-16.0) 05/25/23 18:31 Hct 41.4 % (37.0-47.0) 05/25/23 18:31 MCV 85.2 fL (80.0-100.0) 05/25/23 18:31 MCH 28.4 pg (25.0-34.0) 05/25/23 18:31 MCHC 33.3 g/dL (32.0-36.0) 05/25/23 18:31 RDW Std Deviation 40.3 fL (36.4-46.3) 05/25/23 18:31 RDW Coeff of Katina 13.2 % (11.5-14.5) 05/25/23 18:31 Plt Count 364 K/uL (130-400) 05/25/23 18:31 MPV 9.4 fL (9.4-12.4) 05/25/23 18:31 Immature Gran % (Auto) 0.4 % 05/25/23 18:31 Neut % (Auto) 92.9 % 05/25/23 18:31 Lymph % (Auto) 5.9 % 05/25/23 18:31 Glades % (Auto) 0.6 % 05/25/23 18:31 Eos % (Auto) 0.0 % 05/25/23 18:31 Baso % (Auto) 0.2 % 05/25/23 18:31 Neut # (Auto) 10.56 K/uL (1.40-6.50) H 05/25/23 18:31 Lymph # (Auto) 0.67 K/uL (1.2-3.4) L 05/25/23 18:31 Glades # (Auto) 0.07 K/uL (0.11-0.59) L 05/25/23 18:31 Eos # (Auto) 0.00 K/uL (0-0.50) 05/25/23 18:31 Baso # (Auto) 0.02 K/uL (0-0.2) 05/25/23 18:31 Immature Gran # (Auto) 0.05 K/uL (0.01-0.20) 05/25/23 18:31 RBC Morphology Unremarkable 05/25/23 18:31 PT 10.5 Seconds (9.0-12.0) 05/25/23 18:31 INR 1.0 (0.9-1.1) 05/25/23 18:31 APTT 26.8 Seconds (21.0-31.0) 05/25/23 18:31 PTT Ratio 1.0 05/25/23 18:31 Sodium 135 mmol/L (136-145) L 05/25/23 18:31 Potassium 3.6 mmol/L (3.5-5.1) 05/25/23 18:31 Chloride 104 mmol/L (98-107) 05/25/23 18:31 Carbon Dioxide 23 mmol/L (21-32) 05/25/23 18:31 Anion Gap 8 (3-11) 05/25/23 18:31 BUN 20 mg/dl (6-23) 05/25/23 18:31 Creatinine 0.88 mg/dl (0.6-1.2) 05/25/23 18:31 Est Cr Clr Drug Dosing 116.9 ml/min 05/25/23 18:31 Est GFR ( Amer) 99.4 ml/min 05/25/23 18:31 Est GFR (Non-Af Amer) 85.7 ml/min 05/25/23 18:31 BUN/Creatinine Ratio 22.7 (10-20) H 05/25/23 18:31 Glucose 211 mg/dl (70-99(Fasting)) H 05/25/23 18:31 Lactate 2.0 mmol/L (0.4-2.0) 05/25/23 20:11 Calcium 9.2 mg/dl (8.6-10.3) 05/25/23 18:31 Total Bilirubin 0.3 mg/dl (0.2-1.0) 05/25/23 18:31 AST 20 U/L (13-39) 05/25/23 18:31 ALT 32 U/L (7-52) 05/25/23 18:31 Alkaline Phosphatase 60 U/L (34-104) 05/25/23 18:31 Troponin I High Sens 2.3 pg/ml (0-14) 05/25/23 18: Total Protein 7.8 gm/dl (6.0-8.3) 05/25/23 18:31 Albumin 4.4 gm/dl (3.4-5.0) 05/25/23 18:31 Globulin 3.4 gm/dl (2.5-4.0) 05/25/23 18:31 Albumin/Globulin Ratio 1.3 (0.9-2) 05/25/23 18:31 Adenovirus (PCR) Not Detected (NotDetected) 05/25/23 20:19 B. pertussis DNA (PCR) Not Detected (NotDetected) 05/25/23 20:19 B.parapertussis DNA PCR Not Detected (NotDetected) 05/25/23 20:19 C. pneumoniae DNA (PCR) Not Detected (NotDetected) 05/25/23 20:19 Coronavirus OC43 (PCR) Not Detected (NotDetected) 05/25/23 20:19 Coronavirus HKU1 (PCR) Not Detected (NotDetected) 05/25/23 20:19 Coronavirus 229E (PCR) Not Detected (NotDetected) 05/25/23 20:19 SARS-CoV-2 (PCR) Not Detected (NotDetected) 05/25/23 20:19 Coronavirus NL63 (PCR) Not Detected (NotDetected) 05/25/23 20:19 Human Metapneumovir PCR Not Detected (NotDetected) 05/25/23 20:19 Influenza Type A (PCR) Not Detected (NotDetected) 05/25/23 20:19 Influenza Type B (PCR) Not Detected (NotDetected) 05/25/23 20:19 M. pneumoniae (PCR) Not Detected (NotDetected) 05/25/23 20:19 Parainfluenza 1 (PCR) Not Detected (NotDetected) 05/25/23 20:19 Parainfluenza 2 (PCR) Not Detected (NotDetected) 05/25/23 20:19 Parainfluenza 3 (PCR) Not Detected (NotDetected) 05/25/23 20:19 Parainfluenza 4 (PCR) Not Detected (NotDetected) 05/25/23 20:19 RSV (PCR) Not Detected (NotDetected) 05/25/23 20:19 Entero/Rhino (PCR) Not Detected (NotDetected) 05/25/23 20:19 Impressions Chest X-Ray 05/25/23 18:24 XR chest 1V not portable HISTORY: 33 years-old Female Chest pain, nonspecific COMPARISON: None TECHNIQUE: PA view of the chest FINDINGS: Cardiac mediastinal and hilar silhouettes are within normal limits. No pneumothorax, pleural effusion or pulmonary edema. Mild linear subsegmental left mid lung atelectasis. Bones appear grossly intact. IMPRESSION: No acute process. ACT 112: Negative or not required by law. The above report was generated using voice recognition software. It may contain grammatical, syntax or spelling errors. Electronically signed by: Maykel Orozco M.D. 05/25/2023 7:19 PM Chest CTA 05/25/23 20:00 Exam(s): CTA CHEST IV Amt: 114ml EXAM: CT Angiography Chest With Intravenous Contrast CLINICAL HISTORY: Reason for exam: PE. TECHNIQUE: Axial computed tomographic angiography images of the chest with intravenous contrast. CTDI is 37.9 mGy and DLP is 853.01 mGy-cm. Automated exposure control was utilized for the study. A dose lowering technique was utilized adhering to the principles of ALARA. MIP reconstructed images were created and reviewed. COMPARISON: No relevant prior studies available. FINDINGS: Pulmonary arteries: Unremarkable. No pulmonary embolism. Aorta: No acute findings. No thoracic aortic aneurysm. Lungs: Linear band of consolidation and atelectasis seen anteriorly in the left lower lobe. No mass. Pleural space: Unremarkable. No significant effusion. No pneumothorax. Heart: Unremarkable. No cardiomegaly. No significant pericardial effusion. No evidence of RV dysfunction. Bones/joints: No acute fracture. No dislocation. Soft tissues: Unremarkable. Lymph nodes: Unremarkable. No enlarged lymph nodes. IMPRESSION: 1. No acute pulmonary embolism 2. Linear band of consolidation and atelectasis in the left lower lobe Electronically signed by: Charles Germain MD 05/25/23 22:42 PM Code Status & VTE Plan Code Status Full code VTE Prophylaxis Plan VTE Prophylaxis will be ordered: Yes PG Care Time/CCT Total # of Minutes Spent Total Time Spent with Patient: Total time spent is greater than 50% in coordination of care (as documented) at patient's floor/unit and/or counseling patient: Coding Level of Care Code 72121 INT INP/OBS CARE 3/75MIN Diagnoses Pneumonia involving left lung J18.9 Pleuritic chest pain R07.81 Migraine G43.909 Anxiety and depression F41.9; F32.9 Hypertension I10 Paresthesia R20.2 Failure of outpatient treatment Z78.9
[2023-05-26] MEDS ORDERED: GLUCOSE 40% GEL 15 GM TUBE PO PRN (03:00)
[2023-05-26] MEDS ORDERED: GLUCAGON FOR INJ 1 MG VIAL SQ PRN (03:00)
[2023-05-26] MEDS ORDERED: BENZONATATE 100 MG CAPSULE PO PRN (03:00)
[2023-05-26] MEDS ORDERED: ONDANSETRON INJ 2 MG/ML 2 ML VIAL IV PRN (03:00)
[2023-05-26] MEDS ORDERED: CARBOHYDRATES FOR HYPOGLYCEMIA PO PRN (03:00)
[2023-05-26] MEDS ORDERED: DEXTROSE 50% 50 ML SYRINGE IV PRN (03:00)
[2023-05-26] MEDS ORDERED: GLUCOSE 10 TAB/TUBE PO PRN (03:00)
[2023-05-26] MEDS ORDERED: ALBUT/IPRATROP 3MG/0.5MG NEB 3 ML VIAL NEB PRN (03:18)
[2023-05-26] MEDS: ACETAMINOPHEN 325 MG TAB PO PRN ×2 (04:09→20:04)
[2023-05-26] MEDS: CEFEPIME 2,000 MG in SYRINGE 0 ML IV SCH ×3 (04:39→23:39)
[2023-05-26] MEDS: ALBUT/IPRATROP 3MG/0.5MG NEB 3 ML VIAL NEB SCH ×2 (07:03→11:50)
[2023-05-26] MEDS: MULTIVITAMIN TAB PO SCH (07:14)
[2023-05-26] MEDS: FLUTICASONE PROPIONATE NA SPR 16 GM BTL NAE SCH (07:14)
[2023-05-26] MEDS: methylPREDNISolone 40 MG in SYRINGE 0 ML IV SCH ×3 (07:14→23:38)
[2023-05-26] MEDS: guaiFENesin 600 MG TABCR PO SCH ×2 (07:14→21:42)
--- NOTE | 2023-05-26 07:46 | Hospitalist Progress Note ---
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 Methylprednisolone 125 mg IV, then 40 mg IV every 8 hours Guaifenesin extended release 1200mg p.o. twice daily Viral PCR test negative Nasal cannula oxygen, titrate to keep pulse ox around 95% Pleuritic pain will need parenteral pain control (2) Abdominal pain: Plan: epigastric abdominal pain with recent institution of ibuprofen previous increase caffeine use. Patient be put on Protonix and offered a GI cocktail if the pain persists. hemoglobin has been stable at this time no history of ulcers GI bleeding or gastritis (3) Migraine: (4) Anxiety and depression: Plan: on cymbalta continued (5) Hypertension: Admission and Anticipated Discharge Date Admission Date: May 26, 2023 Subjective patient was seen in emergency department. She continues to have some back and abdominal pain. Her cough has been persistent since the beginning of May is occasionally productive she is markedly fatigued but has been up all night in the emergency department Physical Exam Physical Exam: awake alert appropriate pulmonary exam has some end expiratory wheezes in both lung diego but no focal air loss or dullness abdomen exam shows normal active bowel sounds she is tender in the epigastric area Results & Data Results & Data Vital Signs (Past 12 Hours) Vital Signs Pulse Pulse Resp BP BP Pulse Ox O2 Del Method 05/26/23 07:03 76 14 99 Room Air 05/26/23 05:30 82 18 91 05/26/23 05:00 93 H 17 96 05/26/23 04:40 139/97 96 05/26/23 04:10 96 05/26/23 03:00 93 Room Air 05/26/23 04:00 96 05/26/23 03:30 95 05/26/23 03:00 93 05/26/23 02:30 97 05/26/23 01:30 132/87 96 05/26/23 01:00 97 05/26/23 01:00 128/91 05/26/23 00:30 96 05/26/23 00:00 23 96 05/26/23 00:00 159/108 H 05/25/23 23:30 18 136/100 96 05/25/23 23:00 85 16 153/107 H 97 05/26/23 01:00 87 17 139/78 98 Room Air 05/25/23 23:00 89 17 153/107 H 96 Room Air 05/25/23 22:50 88 14 100 05/25/23 22:40 87 18 100 05/25/23 22:30 93 H 13 98 05/25/23 22:30 145/109 H 05/25/23 22:20 90 15 99 05/25/23 22:10 86 20 97 05/25/23 22:00 91 H 20 97 05/25/23 22:00 143/102 H 05/25/23 21:50 89 14 96 05/25/23 21:47 94 H 18 05/25/23 21:47 150/96 H 05/25/23 21:47 89 15 150/96 H 97 Room Air 05/25/23 21:30 91 H 18 05/25/23 21:20 85 17 05/25/23 21:10 17 05/25/23 21:00 17 05/25/23 20:50 17 05/25/23 20:20 83 17 97 05/25/23 20:10 84 15 05/25/23 20:00 84 16 97 05/25/23 20:00 167/123 H 05/25/23 19:50 88 19 97 PG Care Time/CCT Total # of Minutes Spent Total Time Spent with Patient: Total time spent is greater than 50% in coordination of care (as documented) at patient's floor/unit and/or counseling patient: Coding Level of Care Code None Diagnoses Pneumonia involving left lung J18.9 Abdominal pain R10.9 Migraine G43.909 Anxiety and depression F41.9; F32.9 Hypertension I10
[2023-05-26] MEDS: DULoxetine HCL 20 MG CAP PO SCH (08:03)
[2023-05-26] MEDS: HYDROmorphone INJ 0.5 MG/0.5 ML SYR IV PRN ×3 (08:03→21:44)
[2023-05-26] MEDS ORDERED: VENLAFAXINE HCL XR 150 MG CAPXR PO SCH (09:00)
[2023-05-26] MEDS: PANTOprazole 40 MG in SYRINGE 0 ML IV SCH ×2 (09:53→21:39)
[2023-05-26] MEDS: AZITHROMYCIN 500 MG in DEXTROSE 5% 250 ML IV SCH (23:39)
[2023-05-27 07:39] LABS: Basophils # (auto) 0.01 K/uL (0-0.2); Basophils % (auto) 0.1 %; Hematocrit (blood only) 39.1 % (37.0-47.0); Immature Granulocytes # (auto) 0.06 K/uL (0.01-0.20); Immature Granulocytes % (auto) 0.5 %; Lymphocytes # (auto) 1.09 K/uL (1.2-3.4); Lymphocytes % (auto) 8.8 %; Mean Corpuscular Hemoglobin 27.8 pg (25.0-34.0); Mean Corpuscular Hgb Conc 33.2 g/dL (32.0-36.0); Mean Corpuscular Volume 83.7 fL (80.0-100.0); Mean Platelet Volume 9.3 fL (9.4-12.4); Monocytes # (auto) 0.34 K/uL (0.11-0.59); Monocytes % (auto) 2.7 %; Neutrophils # (auto) 10.89 K/uL (1.40-6.50); Neutrophils % (auto) 87.9 %; Platelet Count 386 K/uL (130-400); RDW Coefficient of Variation 13.1 % (11.5-14.5); RDW Standard Deviation 39.2 fL (36.4-46.3); Red Blood Count 4.67 M/uL (4.20-5.40); White Blood Count 12.39 K/ul (4.8-10.8)
[2023-05-27 07:50] LABS: Estimated Average Glucose 111 mg/dl; Hemoglobin A1C 5.5 % (4.5-5.6)
[2023-05-27 08:05] LABS: Albumin Globulin Ratio 1.4 (0.9-2); Albumin Level 4.3 gm/dl (3.4-5.0); BUN Creatinine Ratio 16.9 (10-20); Bilirubin,Total 0.4 mg/dl (0.2-1.0); Calcium 9.6 mg/dl (8.6-10.3); Creatinine Clr Calc Pharmacy 144.3 ml/min; Est GFR (African American) 128.8 ml/min; Est GFR (Non-African American) 111.1 ml/min; Magnesium 2.1 mg/dl (1.7-2.4); Potassium 4.1 mmol/L (3.5-5.1); Total Protein 7.3 gm/dl (6.0-8.3)
[2023-05-27] MEDS: MULTIVITAMIN TAB PO SCH (08:51)
[2023-05-27] MEDS: FLUTICASONE PROPIONATE NA SPR 16 GM BTL NAE SCH (08:51)
[2023-05-27] MEDS: guaiFENesin 600 MG TABCR PO SCH ×2 (08:51→20:36)
[2023-05-27] MEDS: CEFEPIME 2,000 MG in SYRINGE 0 ML IV SCH (08:51)
[2023-05-27] MEDS: DULoxetine HCL 20 MG CAP PO SCH (08:51)
[2023-05-27] MEDS: PANTOprazole 40 MG in SYRINGE 0 ML IV SCH (08:51)
[2023-05-27] MEDS: methylPREDNISolone 40 MG in SYRINGE 0 ML IV SCH (08:51)
[2023-05-27] MEDS: HYDROmorphone INJ 0.5 MG/0.5 ML SYR IV PRN ×2 (08:52→17:51)
--- NOTE | 2023-05-27 09:20 | Electrocardiogram Report ---
Test Reason : Blood Pressure : / mmHG Vent. Rate : 105 BPM Atrial Rate : 105 BPM P-R Int : 126 ms QRS Dur : 082 ms QT Int : 332 ms P-R-T Axes : 038 024 007 degrees QTc Int : 438 ms Sinus tachycardia Cannot rule out Anterior infarct , age undetermined Abnormal ECG No previous ECGs available Confirmed by Yemi Mcgee ([id number]) on 05/27/2023 9:19:44 AM Referred By: REFERRED SELF Confirmed By:Yemi Mcgee
--- NOTE | 2023-05-27 12:23 | Electrocardiogram Report ---
Test Reason : Blood Pressure : / mmHG Vent. Rate : 116 BPM Atrial Rate : 116 BPM P-R Int : 136 ms QRS Dur : 078 ms QT Int : 326 ms P-R-T Axes : 033 021 012 degrees QTc Int : 453 ms Sinus tachycardia Low voltage QRS Cannot rule out Anterior infarct (cited on or before 25-MAY-2023) Abnormal ECG When compared with ECG of 25-MAY-2023 18:26, (unconfirmed) No significant change was found Confirmed by Yemi Mcgee ([id number]) on 05/27/2023 12:22:41 PM Referred By: REFERRED SELF Confirmed By:Yemi Mcgee
--- NOTE | 2023-05-27 15:57 | Hospitalist Progress Note ---
Date of Service May 27, 2023 Assessment & Plan (1) Pneumonia involving left lung: Plan: Linear pneumonia involving left lung/failure of outpatient treatment- CTA no PE, LLL atelectasis Patient was given ceftriaxone and azithromycin IV in the ED Continue azithromycin 500 mg IV daily stopping cefepime at this point time it does have some significant side effect profile which may be causing the patient to feel poorly. Similarly we will also discontinue methylprednisolone as she has no evidence of bronchospasm Duonebs every 4 hours while awake and every 2 hours when necessary. Guaifenesin extended release 1200mg p.o. twice daily Viral PCR test negative Nasal cannula oxygen, titrate to keep pulse ox around 95% Pleuritic pain will need parenteral pain control (2) Abdominal pain: Plan: epigastric abdominal pain with recent institution of ibuprofen previous increase caffeine use. her abdominal pain persists will change to Pepcid stop her methylprednisolone and cefepime. Hemoglobin remained stable (3) Migraine: (4) Anxiety and depression: Plan: on cymbalta continued anxiety seems to be getting better for we will use some benzodiazepine is also possibility to be an antiemetic (5) Hypertension: Admission and Anticipated Discharge Date Admission Date: May 26, 2023 Subjective patient is not feeling well today she is abdominal discomfort back discomfort just feels generally worse. Her serology does not show much change her leukocytosis is slight but present. This is likely reaction to multiple indications she was started on including cefepime and menthylprednisolone. Sub sequently we will stop these medications continue azithromycin we may consider restarting an oral cephalosporin on 05/28 Physical Exam Physical Exam: patient is tearful she is anxious she is not with using accessory muscles pulmonary examination is only with some coarse breath sounds at the bases which clear with deep inspiration her cardiac exam is regular she has tenderness along the SI joints bilaterally but worse on the left Results & Data Results & Data Vital Signs (Past 12 Hours) Vital Signs Temp Pulse Pulse Resp BP Pulse Ox O2 Del Method 05/27/23 15:39 98.4 F 98 H 20 126/88 95 Room Air 05/27/23 11:40 97.9 F 98 H 18 126/86 96 Room Air 05/27/23 11:22 83 05/27/23 11:17 Room Air 05/27/23 08:34 98.1 F 90 18 126/85 97 Room Air Laboratory Results reviewed CBC reviewed PRP PG Care Time/CCT Total # of Minutes Spent Total Time Spent with Patient: Total time spent is greater than 50% in coordination of care (as documented) at patient's floor/unit and/or counseling patient: Coding Level of Care Code 36985 SUB INP/OBS CARE 2/35MIN Diagnoses Pneumonia involving left lung J18.9 Abdominal pain R10.9 Migraine G43.909 Anxiety and depression F41.9; F32.9 Hypertension I10
[2023-05-27] MEDS: FAMOTIDINE 20 MG in SYRINGE 3 ML IV SCH (20:36)
[2023-05-28] MEDS: AZITHROMYCIN 500 MG in DEXTROSE 5% 250 ML IV SCH (00:25)
[2023-05-28] MEDS: HYDROmorphone INJ 0.5 MG/0.5 ML SYR IV PRN ×3 (00:29→20:13)
[2023-05-28 07:16] LABS: Basophils # (auto) 0.03 K/uL (0-0.2); Basophils % (auto) 0.3 %; Eosinophils # (auto) 0.02 K/uL (0-0.50); Eosinophils % (auto) 0.2 %; Hematocrit (blood only) 39.9 % (37.0-47.0); Hemoglobin 13.1 g/dl (12.0-16.0); Immature Granulocytes # (auto) 0.07 K/uL (0.01-0.20); Immature Granulocytes % (auto) 0.8 %; Lymphocytes # (auto) 3.11 K/uL (1.2-3.4); Lymphocytes % (auto) 34.1 %; Mean Corpuscular Hemoglobin 27.5 pg (25.0-34.0); Mean Corpuscular Hgb Conc 32.8 g/dL (32.0-36.0); Mean Corpuscular Volume 83.6 fL (80.0-100.0); Mean Platelet Volume 9.2 fL (9.4-12.4); Monocytes # (auto) 0.62 K/uL (0.11-0.59); Monocytes % (auto) 6.8 %; Neutrophils # (auto) 5.27 K/uL (1.40-6.50); Neutrophils % (auto) 57.8 %; Platelet Count 334 K/uL (130-400); RDW Coefficient of Variation 12.9 % (11.5-14.5); RDW Standard Deviation 38.9 fL (36.4-46.3); Red Blood Count 4.77 M/uL (4.20-5.40); White Blood Count 9.12 K/ul (4.8-10.8)
[2023-05-28 07:37] LABS: Albumin Globulin Ratio 1.4 (0.9-2); Albumin Level 3.9 gm/dl (3.4-5.0); BUN Creatinine Ratio 20.7 (10-20); Bilirubin,Total 0.4 mg/dl (0.2-1.0); Creatinine Clr Calc Pharmacy 123.9 ml/min; Est GFR (African American) 108.2 ml/min; Est GFR (Non-African American) 93.4 ml/min; Globulin 2.7 gm/dl (2.5-4.0); Magnesium 2.1 mg/dl (1.7-2.4); Potassium 3.6 mmol/L (3.5-5.1); Total Protein 6.6 gm/dl (6.0-8.3)
[2023-05-28] MEDS: MULTIVITAMIN TAB PO SCH (08:50)
[2023-05-28] MEDS: DULoxetine HCL 20 MG CAP PO SCH (08:50)
[2023-05-28] MEDS: FLUTICASONE PROPIONATE NA SPR 16 GM BTL NAE SCH (08:51)
[2023-05-28] MEDS: guaiFENesin 600 MG TABCR PO SCH ×2 (08:51→20:17)
[2023-05-28] MEDS: FAMOTIDINE 20 MG in SYRINGE 3 ML IV SCH ×2 (08:57→20:54)
[2023-05-28] MEDS: LORazepam 2 MG/1 ML VIAL IV PRN ×2 (13:46→20:52)
[2023-05-28] MEDS ORDERED: SODIUM CHLORIDE 1 GM TABLET PO ONE (19:03)
--- NOTE | 2023-05-28 19:09 | Hospitalist Progress Note ---
Date of Service May 28, 2023 Assessment & Plan (1) Pneumonia involving left lung: Plan: Linear pneumonia involving left lung/failure of outpatient treatment- CTA no PE, LLL atelectasis Patient was given ceftriaxone and azithromycin IV in the ED patient was subsequ ently held due to possible drug interference causing her tachycardia Possible POTS Patient has many symptoms associate with POTS. She has persistent sinus tachycardia when standing upright. To this end were going to discontinue her antidepressant as it may have effect on norepinephrine we will volume replete her with normal saline overnight give her 1 g of sodium chloride orally we will start her on metoprolol 12.5 twice daily we will check a.m. TSH cortisol and electrolytes If beta-blockers are not effective may consider midodrine and Florinef pyridostigmine droxidopa Duonebs every 4 hours while awake and every 2 hours when necessary. Guaifenesin extended release 1200mg p.o. twice daily Viral PCR test negative Nasal cannula oxygen, titrate to keep pulse ox around 95% Pleuritic pain will need parenteral pain control (2) Abdominal pain: Plan: epigastric abdominal pain with recent institution of ibuprofen previous increase caffeine use. her abdominal pain has improved with institution of Pepcid and stoppig her methylprednisolone and cefepime. Hemoglobin remained stable (3) Migraine: (4) Anxiety and depression: Plan: Cymbalta has been held due to its effect on norepinephrine anxiety is component of POTS (5) Hypertension: Plan: Instituting beta-elizabeth therapy to help with her tachycardia at this time Admission and Anticipated Discharge Date Admission Date: May 27, 2023 Subjective Patient to continue to not feel well. Has significant sinus tachycardia when sitting or standing. This is associated with some flushing. This can be accomplished by having her sit up in bed. Her pulmonary symptoms have resolved quite a bit but no longer significant coughing Physical Exam Physical Exam: patient is tearful she is anxious Cardiac exam is tachycardic it is regular Lungs are clear without wheezes or crackles Results & Data Results & Data Vital Signs (Past 12 Hours) Vital Signs Temp Pulse Pulse Resp BP BP Pulse Ox 05/28/23 15:21 98.1 F 129 H 18 124/75 99 05/28/23 14:58 121 H 05/28/23 12:16 97.9 F 108 H 18 127/89 96 05/28/23 08:00 05/28/23 07:30 98.4 F 64 18 127/85 96 05/28/23 07:10 73 O2 Del Method 05/28/23 15:21 Room Air 05/28/23 14:58 05/28/23 12:16 Room Air 05/28/23 08:00 Room Air 05/28/23 07:30 Room Air 05/28/23 07:10 PG Care Time/CCT Total # of Minutes Spent Total Time Spent with Patient: Total time spent is greater than 50% in coordination of care (as documented) at patient's floor/unit and/or counseling patient: Coding Level of Care Code 41533 SUB INP/OBS CARE 3/50MIN Diagnoses Pneumonia involving left lung J18.9 Abdominal pain R10.9 Migraine G43.909 Anxiety and depression F41.9; F32.9 Hypertension I10
[2023-05-28] MEDS: METOPROLOL TARTRATE 25 MG TAB PO SCH (20:13)
[2023-05-28] MEDS: SODIUM CHLORIDE 0.9% 1000ML 1,000 ML IV SCH (20:18)
[2023-05-28] MEDS ORDERED: NITROGLYCERIN SL 0.4 MG/TAB TAB SL STA (21:12)
[2023-05-28] MEDS ORDERED: IBUPROFEN 800 MG TAB PO STA (21:16)
--- NOTE | 2023-05-28 21:17 | Communication Note ---
Date of Service: May 28, 2023 Notified by nurse about patient complaining of sharp pain in her abdomen with concomitant shortness of breath. Nurse had obtained EKG which she reported s howed ST elevation. Went upstairs to examine patient, who was complaining of sharp left upper quadrant abdominal pain. Pain was reproducible on palpation and worsened by inspiration. Reviewed EKG, which, per my read, did not appear to show ST elevations. Nevertheless, ordered SL nitroglycerin, troponin, and p.o. ibuprofen 800 mg. Awaiting troponin results at the writing of this note. Resident Activity Tracking Resident Involvement: Resident Care Provided and [employer] Coverage Note Care Provided: Adult Hospital Medicine
[2023-05-29] MEDS ORDERED: NITROGLYCERIN SL 0.4 MG/TAB TAB ONE ×2 (01:18→01:52)
[2023-05-29] MEDS: SODIUM CHLORIDE 0.9% 1000ML 1,000 ML IV SCH (05:27)
[2023-05-29 07:37] LABS: BUN Creatinine Ratio 17.5 (10-20); Calcium 8.6 mg/dl (8.6-10.3); Creatinine Clr Calc Pharmacy 125.2 ml/min; Est GFR (African American) 111.5 ml/min; Est GFR (Non-African American) 96.2 ml/min; Magnesium 2.2 mg/dl (1.7-2.4); Potassium 3.5 mmol/L (3.5-5.1)
[2023-05-29 07:49] LABS: Lyme Ab IgG w/WB Rflx Negative (Negative); Lyme Ab IgM w/WB Rflx Negative (Negative)
[2023-05-29] MEDS: guaiFENesin 600 MG TABCR PO SCH (09:09)
[2023-05-29] MEDS: MULTIVITAMIN TAB PO SCH (09:09)
[2023-05-29] MEDS: METOPROLOL TARTRATE 25 MG TAB PO SCH ×2 (09:09→20:04)
[2023-05-29] MEDS: FAMOTIDINE 20 MG in SYRINGE 3 ML IV SCH ×2 (09:09→20:52)
[2023-05-29] MEDS: FLUTICASONE PROPIONATE NA SPR 16 GM BTL NAE SCH (09:10)
[2023-05-29] MEDS: ACETAMINOPHEN 325 MG TAB PO PRN (09:19)
--- NOTE | 2023-05-29 14:06 | Hospitalist Progress Note ---
Date of Service May 29, 2023 Assessment & Plan (1) Pneumonia involving left lung: Plan: Linear pneumonia involving left lung/failure of outpatient treatment- CTA no PE, LLL atelectasis Patient was given ceftriaxone and azithromycin IV in the ED patient was subsequ ently held due to possible drug interference causing her tachycardia Possible POTS Patient has many symptoms associate with POTS. She had persistent sinus tachycardia when standing upright. To this end were going to discontinue her antidepressant as it may have effect on norepinephrine we did volume replete her with normal saline 05/28 pm given 1 g of sodium chloride orally 05/28, we did start her on metoprolol 12.5 twice daily normal TSH , slighlty low cortisol maybe from methylprednisolone, will repeat on 05/30 and if rebound will leave alone, if low consider repletion If beta-blockers are not effective may consider midodrine and Florinef pyridostigmine droxidopa Duonebs every 4 hours while awake and every 2 hours when necessary. Viral PCR test negative Pleuritic pain now resolved (2) Abdominal pain: Plan: epigastric abdominal pain with recent institution of ibuprofen previous increase caffeine use. her abdominal pain has improved with institution of Pepcid and stoppig her methylprednisolone and cefepime. Hemoglobin remained stable (3) Migraine: (4) Anxiety and depression: Plan: Cymbalta has been held due to its effect on norepinephrine anxiety is component of POTS (5) Hypertension: Plan: Instituting beta-elizabeth therapy to help with her tachycardia at this time Admission and Anticipated Discharge Date Admission Date: May 27, 2023 Subjective pt did have recurrence of her symptoms this am but now with complete resolution she states she feels better after ivf, salt load and starting B elizabeth Physical Exam Physical Exam: patient is anxious about going home, has resolution of symptoms Cardiac exam is much less tachycardic it is regular Lungs are clear without wheezes or crackles Results & Data Results & Data Vital Signs (Past 12 Hours) Vital Signs Temp Pulse Pulse Resp BP BP Pulse Ox 05/29/23 08:00 05/29/23 11:05 98.1 F 92 H 18 139/95 99 05/29/23 07:33 98.6 F 94 H 18 131/85 98 05/29/23 07:16 81 05/29/23 03:29 97.9 F 93 H 16 117/76 96 O2 Del Method 05/29/23 08:00 Room Air 05/29/23 11:05 Room Air 05/29/23 07:33 Room Air 05/29/23 07:16 05/29/23 03:29 Room Air Laboratory Results Reviewed CBC reviewed chemistry reviewed cortisol at Care Time/CCT Total # of Minutes Spent Total Time Spent with Patient: Total time spent is greater than 50% in coordination of care (as documented) at patient's floor/unit and/or counseling patient: Coding Level of Care Code 98482 SUB INP/OBS CARE 3/50MIN Diagnoses Pneumonia involving left lung J18.9 Abdominal pain R10.9 Migraine G43.909 Anxiety and depression F41.9; F32.9 Hypertension I10
--- NOTE | 2023-05-29 17:43 | Electrocardiogram Report ---
Test Reason : Blood Pressure : / mmHG Vent. Rate : 108 BPM Atrial Rate : 108 BPM P-R Int : 132 ms QRS Dur : 078 ms QT Int : 336 ms P-R-T Axes : 049 042 020 degrees QTc Int : 450 ms Sinus tachycardia Cannot rule out Inferior infarct , age undetermined Cannot rule out Anterior infarct (cited on or before 25-MAY-2023) Abnormal ECG When compared with ECG of 26-MAY-2023 13:34, No significant change was found Confirmed by Yemi Mcgee ([id number]) on 05/29/2023 5:43:48 PM Referred By: REFERRED SELF Confirmed By:Yemi Mcgee
[2023-05-29] MEDS: LORazepam 2 MG/1 ML VIAL IV PRN (20:04)
[2023-05-29] MEDS: HYDROmorphone INJ 0.5 MG/0.5 ML SYR IV PRN (20:05)
--- NOTE | 2023-05-29 21:52 | XCELERA ---
[id number]
[2023-05-30] MEDS: LORazepam 2 MG/1 ML VIAL IV PRN (02:12)
[2023-05-30] MEDS: METOPROLOL TARTRATE 25 MG TAB PO SCH (09:12)
[2023-05-30] MEDS: FLUTICASONE PROPIONATE NA SPR 16 GM BTL NAE SCH (09:12)
[2023-05-30] MEDS: MULTIVITAMIN TAB PO SCH (09:13)
[2023-05-30] MEDS: FAMOTIDINE 20 MG in SYRINGE 3 ML IV SCH (09:14)
[2023-05-30] MEDS: ACETAMINOPHEN 325 MG TAB PO PRN (09:17)
--- NOTE | 2023-05-30 11:55 | Discharge Summary ---
Date of Service May 30, 2023 Admission HPI Per Admitting Provider The patient is a 33-year-old female with a past medical history including basilar migraine, anxiety and depression, hypertension and paresthesias. She presents to the ED with symptoms as noted above. CT scan in the emergency department showed a left-sided linear pneumonia, and patient was referred for evaluation for admission due to this finding and significant pleuritic chest pain Principal Diagnosis POTS Discharge Exam General: A&Ox3. NAD. Cooperative. HEENT: Atraumatic, normocephalic. Pulm: CTAB A&P. -wheezes, -rales, -rhonchi. Symmetrical chest rise. No increased work of breathing. No respiratory distress. Cardiac: RRR, -mrg. Radial pulses intact and symmetrical. Abdominal: Nontender, nondistended, soft. BS present. Discharge Data Allergies Allergy/AdvReac Type Severity Reaction Status Date / Time No Known Allergies Allergy Unverified 03/24/20 10:28 Consultations 05/26/23 00:23 ED Decision to Admit Stat Ordered Studies 05/25/23 20:00 CT angio chest PE protocol Stat Hospital Course (1) POTS (postural orthostatic tachycardia syndrome): Initially suspected to have pneumonia due to inspiratory/pleuritic pain and tachycardia with left lower lobe? Density. On review this was felt to be atelectasis. Patient did not have fever/chills/hypoxia after initial antibiotics in the ER which were discontinued Was suspected to have POTS Possible POTS Duloxetine discontinued. If withdrawal symptoms develop she may resume this at 20 mg every other day then discontinue after taper, suspect withdrawal risk low given minimal dosing Started on metoprolol 12.5 mg tartrate twice daily. Adjust as needed for sinus tachycardia/palpitations Blood pressure low normal despite adequate volume status, did respond well with improvement of symptoms to sodium chloride tab while inpatient. This was continued as 1 g every other day. Adjust as needed, ideally will down titrate and illuminate this if patient is doing well on metoprolol. Improved, did not require adjunct midodrine and Florinef pyridostigmine droxidopa Pleuritic pain now resolved FMLA paperwork completed while inpatient. If doing well may return 06/03, Saturday. If patient is not doing well and feels unable to return to work at this time should follow-up with PCP for additional medication adjustments and care (2) Pneumonia involving left lung: (3) Abdominal pain: epigastric abdominal pain with recent institution of ibuprofen previous increase caffeine use. her abdominal pain has improved with institution of Pepcid and stoppig her methylprednisolone and cefepime. Hemoglobin remained stable (4) Migraine: (5) Anxiety and depression: Cymbalta has been held due to its effect on norepinephrine anxiety is component of POTS (6) Hypertension: Instituting beta-elizabeth therapy to help with her tachycardia at this time Total Time Total Time Spent Total Time Spent (In Minutes): Time spend day of discharge 50 minutes including direct patient care, documentation, review of labs and images, and coordination of care. Discharge Plan Discharge Items Patient Disposition: Home - Self-Care Reason For Visit: PNEUMONIA, FAILURE OF OUTPATIENT TREATMENT Discharge Diagnosis: POTS Condition on Discharge: Fair Activity: Per Instructions section Non-emergency contact: Primary Care Provider Call non-emergency contact if: you have any medication questions and your symptoms worsen Follow-up/Referrals: Karina Jacobsen DO [Physician] - PCP,NO [Primary Care Provider] - Diet: Regular Addtl Attending Provider Instructions: You were seen in the hospital for a rapid heart rate and were initially suspected to have pneumonia based on CT. Your CTA did not show any evidence of a blood clot/pulmonary embolism. There was concern of a streak in the left lower lobe, ultimately this was thought to be due to atelectasis rather than pneumonia. You are initially treated with antibiotics, these were held for possible drug interactions and contribution to tachycardia. On follow-up you are noted to have multiple symptoms associated with pots syndrome. You had sinus tachycardia when standing upright. Cymbalta can affect this syndrome. You are on a 20 mg daily dose, most patients do not have side effects when stopping this dose. If you notice withdrawal symptoms/side effects restart Cymbalta 20 mg every other day and follow-up with your primary care doctor regarding a taper of this medication. please follow-up with your primary care physician regarding a substitute for this medication as an outpatient. You have been started on a beta-elizabeth called metoprolol to help with your symptoms. Please take metoprolol tartrate 12.5 mg by mouth twice daily. This dose can lower blood pressure and may need to be adjusted either up or down based on your tolerance and response. Once the dosing is stable this can be converted to an alternative formulation which is taken daily rather than twice daily. This will be done by her outpatient primary care provider. You were given some sodium chloride tablets which also improved your symptoms. Your sodium was briefly low on 05/25 then improved up to 139. Please take sodium chloride 1 g every other day by mouth. If your blood pressure is significantly elevated stop taking this medication. Depending on your degree of symptoms this may be discontinued or increased based on clinical response. You did have cortisol levels checked, these were initially low but improved spontaneously. You were not thought to have adrenal insufficiency at time of admission. If you develop any new or worsening symptoms including fever, chills, sweats, chest pain, chest pressure, difficulty breathing, uncontrolled nausea/vomiting, rash, wheezing, passing out or nearly passing out, bleeding, black/bloody bowel movements, or other new or concerning symptoms please call your primary care physician, or call 911 for re-evaluation in the emergency department if you are very concerned. Pending Studies at Discharge: No Stand-Alone Forms: My [facility], Smoking Cessation Medications and DC Order Prescriptions: New metoprolol tartrate 25 mg Tablet 12.5 mg PO BID 60 Days Qty: 60 0RF sodium chloride 1,000 mg tablet,soluble 1,000 mg PO .qod Qty: 14 0RF Rx Instructions: 1 tablet every other day Continued multivitamin [Multiple Vitamins] Tablet 1 tab PO DAILY albuterol sulfate 90 mcg/actuation HFA aerosol inhaler 2 puff INHALATION Q4 PRN (Reason: Shortness Of Breath Or Wheezing) fluticasone propionate 50 mcg/actuation spray,suspension 2 spray INTRANASAL QAM Discontinued venlafaxine 150 mg capsule,extended release 24hr 150 mg PO DAILY benzonatate 100 mg capsule 100 mg PO TID PRN (Reason: Cough) prednisone 10 mg tablet See Rx Instructions .ROUTE .COMPLEX Rx Instructions: take 5 tablets daily for 2 days, 4 tabs for 2 days,3 tabs for 2 days,etc Discharge Orders: Discharge Order (Routine); Ordered 05/30/23 Ordered By: Wero Rodgers Admission Data Admit Date/Time: 05/27/23 16:34 Attending Provider: Wero Rodgers Admit Provider: Loco Gilmore Primary Care Provider: PCP,NO Other Providers: Loco Gilmore Coding Level of Care Code 35787 INP/OBS DISCH >30 MIN Diagnoses POTS (postural orthostatic tachycardia syndrome) G90.A Pneumonia involving left lung J18.9 Abdominal pain R10.9 Migraine G43.909 Anxiety and depression F41.9; F32.9 Hypertension I10
== END 2023-05-30 13:03 | disposition home or self-care (01) ==
LOC: EDINP 18:16 → ED 18:16 → SUATTDRO 05-26 00:13 → 2N 05-26 03:01 → SUATTDRO 05-27 16:34